=== PATIENT | male | born 1965 | race Caucasian/White ===

== ENCOUNTER 2016-09-03 09:05 | Emergency (ER) | payer MEDICARE, MEDICAID ==
[~2016-09-03] VITALS: Ht 177.8 cm; Wt 79.5 kg
[~2016-09-03 09:05] MED LIST: GLUCTAB PO; NAPR220T95 PO; PRAV20 PO
[2016-09-03 09:08] VITALS: BP 169/83; PULSE 66; RESP 20; TEMP 97.8; O2SAT 98
--- NOTE | 2016-09-03 09:26 | PD ---
HPI Chief Complaint: Bite or Sting Time Seen by Provider: 09:25 Travel History International Travel<30 days: No Contact w/Intl Traveler<30days: No Traveled to known affect area: No History of Present Illness HPI 50-year-old male presents to emergency Department with complaint of a tick bite to the back of his right leg 3 weeks which is now showing signs of infection. He says he also has a bite on his penis that he scrubbed with a loofah this morning and is now excoriated. Reports areas red and it looks like it has a serrato on it. Denies fever, vomiting. Does not know when he received his tetanus vaccination last. Has not taken any medications or tried any treatments to relieve symptoms. No known aggravating or relieving factors. Allergies to bee stings and shellfish. Has no other medical complaints. No other modifying factors or associated signs and symptoms. 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) Neurologic: Yes (PHANTOM PAIN LEFT LEG) Psychiatric: No Reproductive: No Respiratory: No Thyroid Disease: No Past Surgical History Abdominal Surgery: No AICD: No Body Medical Devices: HARDWARE LEFT HIP/ FEMUR - PROSTHETIC LEFT LEG Cardiac Surgery: No Ear Surgery: No Endocrine Surgery: No Eye Surgery: No Genitourinary Surgery: No Joint Replacement: No Neurologic Surgery: Yes (LUMBAR LAMINECTOMY) Oral Surgery: No Pacemaker: No Thoracic Surgery: No Other Surgery: Yes Social History Alcohol Use: Yes (6 PACK BEER /DAY) Tobacco Use: Yes (1PPD) Substance Use: Yes (RECOVERING ALCOHOLIC - SOBRIETY DATE 12/30/2012) Allergies-Medications (Allergen,Severity, Reaction): Coded Allergies: Bee Sting (Verified Allergy, Severe, EDEMA, 02/13/14) Shellfish (Verified Allergy, Severe, VOMITING, 02/13/14) *MDRO Multi-Drug Resistant Organism (Unverified Allergy, Unknown, 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 Reported Meds & Prescriptions Reported Meds & Active Scripts Active Bactrim DS (Sulfamethoxazole-Trimethoprim) 800-160 Mg Tab 1 Tab PO BID 10 Days Keflex (Cephalexin) 500 Mg Cap 500 Mg PO Q6H 10 Days Reported Aleve (Naproxen Sodium) 220 Mg Tab 440 Mg PO DAILY PRN Pravastatin Sodium 20 Mg Tab 1 Tab PO HS Glucophage XR 24 HR (Metformin HCl) 500 Mg Tab 500 Mg PO BIDPC Review of Systems Except as stated in HPI: all other systems reviewed are Neg Physical Exam Narrative GENERAL: Well-nourished, well-developed male patient, in no acute distress; afebrile, nontoxic-appearing SKIN: There is an indurated area to the right posterior thigh which measures about cm in diameter. It is fluctuant and with pointing; purulent drainage squeezed from the site. HEAD: Atraumatic. Normocephalic. EYES: Pupils equal and round. No scleral icterus. No injection or drainage. ENT: Mucosa pink and moist. Airway patent. NECK: Trachea midline. CARDIOVASCULAR: Regular rate. RESPIRATORY: No accessory muscle use. GASTROINTESTINAL: Flat. GENITOURINARY: Circumcised. Lesion noted to underside of shaft of penis; without erythema, edema, drainage; no pointing or fluctuance noted. No urethral discharge. MUSCULOSKELETAL: No obvious deformities. No clubbing. No cyanosis. No edema. NEUROLOGICAL: Awake and alert. Oriented 3. No obvious cranial nerve deficits. Motor grossly within normal limits. Normal speech. PSYCHIATRIC: Appropriate mood and affect; insight and judgment normal. Data Data Last Documented VS Vital Signs Date Time Temp Pulse Resp B/P Pulse Ox O2 Delivery O2 Flow Rate FiO2 09/03/16 09:08 97.8 66 20 169/83 98 Room Air Orders Wound Culture And Gram Stain (09/03/16 09:26) Tetanus/Diphtheria Tox Adult (Tetanus/Di (09/03/16 09:30) [facility] Medical Decision Making Medical Screen Exam Complete: Yes Emergency Medical Condition: Yes Medical Record Reviewed: Yes Differential Diagnosis Infected insect bite, abscess, folliculitis Narrative Course 50-year-old male with infected insect bite to the posterior right thigh. Patient is afebrile nontoxic appearing. He denies fever, vomiting. Wound culture pending. Tetanus updated in the ER. Keflex, Bactrim prescribed for home. Patient verbalizes understanding and agreement with treatment plan. Patient is medically cleared and stable for discharge. Discussed reasons to return to the emergency department. Instructed patient to follow up with primary care provider. Patient agrees with treatment plan. The patients vital signs are stable and the patient is stable for outpatient follow-up and treatment. Patient discharged home, stable and in no acute distress. Diagnosis Primary Impression: Infected insect bite of right leg Qualified Code: S80.861A - Infected insect bite of right leg, initial encounter Referrals: Primary Care Physician Patient Instructions: General Instructions, Insect Bite or Sting (ED) Additional Instructions: Antibiotics as prescribed Keep area clean and dry Ibuprofen or Tylenol as directed and as needed for pain and inflammation Follow-up with primary care provider Return to the emergency department immediately with worsening of symptoms Med/Other Pt SpecificInfo: Prescription(s) given Scripts Sulfamethoxazole-Trimethoprim (Bactrim DS)800-160 Mg Tab1 Tab PO BID 10 Days Ref 0 Prov:Miladys Phillip 09/03/16 Cephalexin (Keflex)500 Mg [id number] Mg PO Q6H 10 Days Ref 0 Prov:Miladys Phillip 09/03/16 Disposition: 01 DISCHARGE HOME Condition: Stable Miladys Phillip September 03, 2016 09:26
[2016-09-03] MEDS ORDERED: CEPH-460 PO (09:28)
[2016-09-03] MEDS ORDERED: BACT800T5 PO (09:28)
[2016-09-03] MEDS ORDERED: TETANUS/DIPHTHERIA TOXOID ADULT 0.5 ML VIAL IM ONE (09:30)
[2016-09-03] MEDS ORDERED: PRAV20TA2 PO (09:47)
[2016-09-03] MEDS ORDERED: GLUCTAB PO (09:47)
== END 2016-09-03 09:53 | disposition home or self-care (01) ==
LOC: NEPK 09:05
DX: S80.861A Insect bite (nonvenomous), right lower leg, initial encounter (principal); E11.9 Type 2 diabetes mellitus without complications; F17.210 Nicotine dependence, cigarettes, uncomplicated; B95.7 Other staphylococcus as the cause of diseases classified elsewhere; W57.XXXA Bitten or stung by nonvenomous insect and other nonvenomous arthropods, initial encounter; Z23 Encounter for immunization
CPT/HCPCS: 86403; 87070; 87077; 87186; 90471; 90714